=== PATIENT | female | born 1945 | race Caucasian/White ===

== ENCOUNTER 2016-12-19 15:26 | Inpatient (IN) | payer MEDICARE ==
--- NOTE | 2016-12-19 15:43 | Emergency Department Record ---
History of Present Illness - General Chief Complaint: Abdominal Pain Stated Complaint: ABD PAIN Time Seen by Provider: 12/19/16 15:34 Source: Patient Mode of Arrival: Wheelchair Limitations: No limitations - History of Present Illness Initial Comments: The patient is here due to a 2 hour hx of abdominal pain. The pain came on suddenly and started in the upper abdominal area and then moved to the mid- abdomen. The pain is sharp and crampy and is associated with nausea but no vomiting or diarrhea. She has no hx of similar issues and no recent illnesses. The pain was quite severe earlier but now is better. She does have a hx of having a Cholecystectomy in the past and a ANA. Complaint: Abdominal pain Onset/Timin -: Hour(s) Location: Diffuse, Epigastric, Periumbilical Radiation: Back Severity: Severe Quality: Cramping, Other Consistency: Constant Improves With: Nothing Worsens With: Movement Associated Symptoms: Nausea - Related Data Patient : No Home Medications Medication Instructions Recorded Confirmed Last Taken Albuterol Sulfate [Proair Hfa] 8.5 gm INH DAILY 10/03/14 12/19/16 10/03/14 Allopurinol [Allopurinol] 300 mg PO DAILY 10/03/14 12/19/16 10/03/14 Esomeprazole Magnesium [Nexium] 40 mg PO DAILY 10/03/14 12/19/16 10/03/14 Furosemide [Furosemide] 40 tab PO DAILY 10/03/14 12/19/16 10/03/14 Glimepiride [Glimepiride] 2 mg PO DAILY 10/03/14 12/19/16 10/03/14 Levothyroxine Sodium [Synthroid] 50 mcg PO DAILYTHY 10/03/14 12/19/16 10/03/14 Lisinopril [Lisinopril] 10 mg PO DAILY 10/03/14 12/19/16 10/03/14 Metformin HCl [Metformin HCl] 500 mg PO BID 10/03/14 12/19/16 10/03/14 Oxycodone HCl/Acetaminophen 1 tab PO Q6H 10/03/14 12/19/16 10/03/14 [Oxycodone-Acetaminophen 10-325] Previous Rx's Medication Instructions Recorded Indomethacin [Indocin] 25 mg PO TID #20 capsule 10/03/14 Allergies Allergy/AdvReac Type Severity Reaction Status Date / Time azithromycin [From Zithromax] Allergy NAUSEA Verified 10/03/14 09:15 prednisone Allergy SWELLING Verified 10/03/14 09:14 (GENERAL) sulfamethoxazole Allergy NAUSEA Verified 10/03/14 09:15 [From Bactrim] terfenadine [From Seldane] Allergy PT UNSURE Verified 10/03/14 09:15 OF REACTION trimethoprim [From Bactrim] Allergy NAUSEA Verified 10/03/14 09:15 Travel Screening - Travel/Exposure Within Last 30 Days Have you traveled within the last 30 days?: No Review of Systems Constitutional: Denies: Chills, Fever Eyes: Denies: Eye discharge ENT: Denies: Congestion Respiratory: Denies: Cough, Dyspnea Past Medical History - SOCIAL HISTORY Smoking Status: Never smoker Alcohol Use: None Drug Use: None - RESPIRATORY Hx Respiratory Disorders: Yes Hx Asthma: Yes Hx COPD: Yes - CARDIOVASCULAR Hx Cardio Disorders: Yes Hx Hypertension: Yes - NEURO Hx Neuro Disorders: No - GI Hx GI Disorders: Yes Hx Reflux: Yes - Hx Genitourinary Disorders: No - ENDOCRINE Hx Endocrine Disorders: Yes Hx Diabetes: Yes Hx Thyroid Disease: Yes - MUSCULOSKELETAL Hx Musculoskeletal Disorders: Yes Hx Arthritis: Yes Hx Gout: Yes - PSYCH Hx Psych Problems: No - HEMATOLOGY/ONCOLOGY Comment:: Defiency of Ig A, E, and G Family Medical History Any Significant Family History?: Yes Hx Cancer: Father Hx Dementia: Mother Hx Heart Disease: Mother Physical Exam - General General Appearance: Alert, Oriented x3, Cooperative, No acute distress - Head Head exam: Atraumatic, Normocephalic, Normal inspection - Eye Eye exam: Normal appearance, PERRL - ENT Throat exam: Normal inspection. negative: Tonsillar erythema, Tonsillar exudate - Neck Neck exam: Normal inspection, Full ROM. negative: Tenderness - Respiratory Respiratory exam: Normal lung sounds bilaterally. negative: Respiratory distress - Cardiovascular Cardiovascular Exam: Regular rate, Normal rhythm, Normal heart sounds - GI/Abdominal GI/Abdominal exam: Soft, Tenderness (There is diffuse mid abdominal tenderness with no guarding or rebound.). negative: Guarding, Rebound, Rigid - Extremities Extremities exam: Normal inspection, Full ROM, Normal capillary refill. negative: Tenderness Course Vital Signs 12/19/16 15:34 Temperature 97.5 F L Pulse Rate [ 68 Pulse Ox Probe] Respiratory 16 Rate Blood Pressure 193/95 [Right Arm] Pulse Ox 99 - Reevaluation(s) Reevaluation #1: The patient is doing a lot better at this time. She is resting comfortably with much less pain. 12/19/16 16:23 12/19/16 17:56 Reevaluation #2: The patient is doing better but is still having some pain. I did discuss the CT with the patient and do believe the patient's symptoms are due to the incarcerated fat containing hernia. I then did discuss the case with Dr. Timmons and he will take the patient to surgery tomorrow. I then did discuss the case with Dr. Mancuso and she will admit the patient overnight for Dr. Timmons. 12/19/16 17:56 Medical Decision Making - Data Complexity MDM Data: Labs Ordered and/or Reviewed, X-Ray Ordered and/or Reviewed - Lab Data Result diagrams: 12/19/16 16:00 12/19/16 16:00 - Radiology Data Radiology results: Report reviewed (CT: Fat containing periumbilical hernia measuring 7x5x8 cm with mild fat stranding.) Disposition Disposition: Admit Clinical Impression: Umbilical hernia Qualifiers: Obstruction and gangrene presence: without obstruction or gangrene Qualified Code(s): K42.9 - Umbilical hernia without obstruction or gangrene Disposition: Still a Patient at [facility] Decision to Admit: Admit from ER Decision to Admit Date: 12/19/16 Decision to Admit Time: 17:58 Accepting Physician: Jamee Time Discussed w/Accepting Physician: 17:58 Condition: (2) Stable Instructions: Abdominal Pain (ED) Forms: Patient Portal Access Time of Disposition: 17:58
[2016-12-19] MEDS ORDERED: HYDROMORPHONE HCL 1 MG/ML CPJ IVP ONE (15:45)
[2016-12-19] MEDS ORDERED: 0.9 % SODIUM CHLORIDE 1,000 ML BAG IV ONE ×2 (15:45→16:29)
[2016-12-19] MEDS ORDERED: ONDANSETRON HCL IV 4 MG/2 ML VIAL IV ONE (15:45)
[2016-12-19 16:12] LABS: HEMATOCRIT 39.9 % (35.0-47.0); HEMOGLOBIN 13.1 gm/dl (11.6-16.0); MEAN CELL VOLUME 90.1 fl (81-97); MEAN CORPUSCULAR HEMOGLOBIN 29.6 pg (27-33); MEAN CORPUSCULAR HGB CONC 32.8 g/dl (32-36); MEAN PLATELET VOLUME 10.2 fl (7.4-10.4); PLATELET COUNT 213 K/uL (130-400); RED BLOOD COUNT 4.43 M/uL (3.80-5.40); RED CELL DISTRIBUTION WIDTH 14.4 % (11.5-14.5); WHITE BLOOD COUNT W/O DIFF 9.4 K/uL (4.2-12.2)
[2016-12-19 16:24] LABS: ALBUMIN 4.7 gm/dL (3.5-5.0); ANION GAP 14.1 (7-16); BILIRUBIN,TOTAL 0.53 mg/dL (0.2-1.3); CARBON DIOXIDE 26.9 mmol/L (22-30); TOTAL PROTEIN 7.5 gm/dL (6.3-8.2)
[2016-12-19 16:33] LABS: PLATELET ESTIMATE NORMAL (NORMAL)
[2016-12-19 17:32] LABS: URINE APPEARANCE CLEAR; URINE BILIRUBIN NEGATIVE (NEGATIVE); URINE BLOOD NEGATIVE (NEGATIVE); URINE COLOR YELLOW; URINE GLUCOSE (UA) NEGATIVE (NEGATIVE); URINE KETONE NEGATIVE (NEGATIVE); URINE LEUKOCYTE ESTERASE NEGATIVE (NEGATIVE); URINE NITRITE NEGATIVE (NEGATIVE); URINE PROTEIN NEGATIVE (NEGATIVE); URINE UROBILINOGEN 0.2 E.U./dL (0.20 - 1.00)
[2016-12-19] MEDS ORDERED: 0.9 % SODIUM CHLORIDE 1000ML 1,000 ML IV PRN (17:59)
[2016-12-19] MEDS ORDERED: ERTAPENEM SODIUM 1 G in 0.9 % SODIUM CHLORIDE 100ML 100 ML IVPB SCH (18:15)
[2016-12-19] MEDS ORDERED: METFORMIN 500 MG TABLET PO SCH (22:00)
[2016-12-19] MEDS: HYDROMORPHONE HCL 1 MG/ML CPJ IVP PRN (22:54)
[2016-12-20] MEDS: HYDROMORPHONE HCL 1 MG/ML CPJ IVP PRN ×2 (06:17→19:06)
--- NOTE | 2016-12-20 07:52 | CT SCAN REPORT ---
EXAM: CT SCAN OF THE ABDOMEN AND PELVIS WITH CONTRAST HISTORY: SEVERE PERIUMBILICAL ABDOMINAL PAIN SINCE 1:00 P.M. TODAY. TECHNIQUE: Standard CT imaging of the abdomen and pelvis was performed in the axial plane with contrast. 100 ml of Omnipaque 300 were administered. Comparison: None. FINDINGS: The lung bases are clear. Mild coronary artery calcifications are present. There is mild fatty infiltration of the liver. The gallbladder is surgically absent. The biliary tree and pancreas appear normal. The spleen is upper normal in size. There is a 1.2 x 2.2 cm low density nodule within the left adrenal gland likely representing an adenoma. This has decreased in size when compared to a previous chest CT scan from 04/07/12 where it measured 1.6 x 2.7 cm. The right adrenal gland is normal. There are small bilateral renal cysts. The largest on the left measures 2 cm in maximal dimension. The largest on the right measures 1.5 cm in maximal dimension. There is no acute renal pathology. There are moderate atherosclerotic changes within the aorta with aneurysm or dissection. There is no retroperitoneal lymphadenopathy. There is a fat containing umbilical hernia measuring 7.1 x 5 x 8.9 cm. This appears to represent omental fat which extends into the hernia sac. There is minor fat stranding at the opening of the hernia. There is no significant fat stranding within the hernia itself. The remaining portions of the abdominal wall appear intact. There are a few scattered diverticula within the sigmoid colon with no evidence for acute diverticulitis. The remaining bowel and mesentery are normal. The appendix is not well seen, however, there is no evidence for acute appendicitis. The uterus is surgically absent. The urinary bladder appears normal. Degenerative changes are present within the spine. There are no acute osseous abnormalities. IMPRESSION: 1. FAT CONTAINING UMBILICAL HERNIA MEASURING 7.1 X 5 X 8.9 CM. 2. NO ACUTE INTRAABDOMINAL PATHOLOGY. 3. MILD SIGMOID DIVERTICULOSIS WITH NO DIVERTICULITIS. 4. SMALL BILATERAL RENAL CYSTS. 5. LEFT ADRENAL ADENOMA. 6. STATUS POST CHOLECYSTECTOMY AND HYSTERECTOMY. 7. MILD CORONARY ARTERY CALCIFICATIONS. JOB NUMBER: [id number] [facility]
--- NOTE | 2016-12-20 09:27 | History & Physical ---
History of Present Illness - Date of Service Date of Service for History & Physical: 12/20/16 - History of Present Illness Admitting Diagnosis: 1. Incarcerated periumbilical hernia. History of Present Illness: Sb Clinton is a 71 y/o female with history of DM and asthma admitted for fat containing incarcerated umbilical hernia. Reports sudden onset mid abdominal pain around umbilicus with obvious bulging after bringin in groceries. 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 PMX:asthma, COPD, HTN, GERD, DM, thyroid disease, arthritis, gout, deficiency of IgA, IgE, IgG PSH:T&A, D&C, total hysterectomy, cholecystectomy, surgery for abscess in jaw. PCP: Dr. Chapin Travel Screening - Travel/Exposure Within Last 30 Days Have you traveled within the last 30 days?: No - Travel/Exposure Within Last Year Have you traveled outside the [place] in the last year?: No - Additonal Travel Details Have you been exposed to anyone with a communicable illness?: No - Travel Symptoms Symptom Screening: None Review of Systems Constitutional: Denies: Chills, Fever Eyes: Denies: Eye discharge ENT: Denies: Congestion Respiratory: Denies: Cough, Dyspnea Past Medical History - SOCIAL HISTORY Smoking Status: Never smoker Alcohol Use: None - RESPIRATORY Hx Respiratory Disorders: Yes Hx Asthma: Yes Hx COPD: Yes - CARDIOVASCULAR Hx Cardio Disorders: Yes Hx Hypertension: Yes - NEURO Hx Neuro Disorders: No - GI Hx GI Disorders: Yes Hx Reflux: Yes - Hx Genitourinary Disorders: No - ENDOCRINE Hx Endocrine Disorders: Yes Hx Diabetes: Yes Hx Thyroid Disease: Yes - MUSCULOSKELETAL Hx Musculoskeletal Disorders: Yes Hx Arthritis: Yes Hx Gout: Yes - PSYCH Hx Psych Problems: No - HEMATOLOGY/ONCOLOGY Comment:: Defiency of Ig A, E, and G Family Medical History Any Significant Family History?: Yes Hx Cancer: Father Hx Dementia: Mother Hx Heart Disease: Mother H&P Meds/Allergies - Allergies Allergies: Allergies Allergy/AdvReac Type Severity Reaction Status Date / Time azithromycin [From Zithromax] Allergy NAUSEA Verified 10/03/14 09:15 prednisone Allergy SWELLING Verified 10/03/14 09:14 (GENERAL) sulfamethoxazole Allergy NAUSEA Verified 10/03/14 09:15 [From Bactrim] terfenadine [From Seldane] Allergy PT UNSURE Verified 10/03/14 09:15 OF REACTION trimethoprim [From Bactrim] Allergy NAUSEA Verified 10/03/14 09:15 - Home Medications Home Medications Medication Instructions Recorded Confirmed Last Taken Albuterol Sulfate [Proair Hfa] 2 puff INH Q4H PRN 10/03/14 12/20/16 10/03/14 Allopurinol [Allopurinol] 150 mg PO BIDWM 10/03/14 12/20/16 10/03/14 Esomeprazole Magnesium [Nexium] 40 mg PO DAILYAC 10/03/14 12/20/16 10/03/14 Furosemide [Furosemide] 40 mg PO DAILY 10/03/14 12/20/16 10/03/14 Glimepiride [Glimepiride] 2 mg PO 1730 10/03/14 12/20/16 10/03/14 Levothyroxine Sodium [Synthroid] 50 mcg PO DAILYTHY 10/03/14 12/19/16 10/03/14 Lisinopril [Lisinopril] 10 mg PO QHS 10/03/14 12/20/16 10/03/14 Metformin HCl [Metformin HCl] 500 mg PO BIDWM 10/03/14 12/20/16 10/03/14 Oxycodone HCl/Acetaminophen 1 tab PO Q6H 10/03/14 12/19/16 10/03/14 [Oxycodone-Acetaminophen 10-325] Albuterol Sulfate 0.083% [Neb] 3 ml NEB BID 12/20/16 12/20/16 Unknown Meloxicam [Meloxicam] 7.5 mg PO DAILY 12/20/16 12/20/16 Unknown Previous Rx's Medication Instructions Recorded Indomethacin [Indocin] 25 mg PO TID #20 capsule 10/03/14 - Active Medications Active Medications: Current Medications Albuterol Sulfate (Ventolin Hfa) puff INH DAILY TIMMY Furosemide (Lasix) mg PO DAILY TIMMY Glimepiride (Amaryl) 2 mg PO DAILY TIMMY Hydromorphone HCl (Dilaudid) 1 mg IVP Q4H PRN PRN Reason: Abdominal Pain Last Admin: 12/20/16 06:17 Dose: 1 mg Ertapenem 1 g/ Sodium Chloride 100 mls @ 200 mls/hr IVPB DAILY [facility] Last Admin: 12/19/16 19:24 Dose: 200 mls/hr Sodium Chloride () 1,000 mls @ 100 mls/hr IV .Q10H PRN PRN Reason: LARGE VOLUME IV Last Admin: 12/20/16 06:11 Dose: 100 mls/hr Lisinopril (Zestril) 10 mg PO DAILY [facility] Metformin HCl (Glucophage Ir) 500 mg PO BID TIMMY Last Admin: 12/19/16 21:08 Dose: Not Given Non-Formulary Medication (Allopurinol [Allopurinol]) 300 mg PO DAILY [facility] Non-Formulary Medication (Esomeprazole Magnesium [Nexium]) 40 mg PO DAILY [facility] Ondansetron HCl (Zofran) 4 mg IVP Q4H PRN PRN Reason: NAUSEA Physical Exam - Vital Signs Vital Signs: Vital Signs - Last 24 Hrs Temp Pulse Pulse Resp BP BP Pulse Ox 12/20/16 09:20 98.1 F 55 L 16 109/71 95 12/20/16 07:01 98.0 F 57 L 18 144/73 94 L 12/20/16 01:25 98.5 F 56 L 14 131/77 94 L 12/19/16 19:59 98.1 F 72 16 139/86 96 12/19/16 18:44 61 18 141/83 98 - General General Appearance: Alert, Oriented x3, Cooperative, No acute distress Limitations: No limitations - Head Head exam: Atraumatic, Normocephalic, Normal inspection - Eye Eye exam: Normal appearance, PERRL - ENT Throat exam: Normal inspection. negative: Tonsillar erythema, Tonsillar exudate - Neck Neck exam: Normal inspection, Full ROM. negative: Tenderness - Respiratory Respiratory exam: Normal lung sounds bilaterally. negative: Respiratory distress - Cardiovascular Cardiovascular Exam: Regular rate, Normal rhythm, Normal heart sounds - GI/Abdominal GI/Abdominal exam: Soft, Tenderness (There is diffuse mid abdominal tenderness with no guarding or rebound.), Other (periumbilical areas soft, mild protrusion in umbilical opening, no warmth or erythma). negative: Guarding, Rebound, Rigid - Extremities Extremities exam: Normal inspection, Full ROM, Normal capillary refill. negative: Tenderness Results - Labs Result Diagrams: 12/19/16 16:00 12/19/16 16:00 - Imaging and Cardiology CT scan - abdomen Status: Report reviewed (fat containing incarcerated umbilical hernia) VTE H&P Assessment - Risk for VTE Risk for VTE: Yes Risk Level: Moderate Risk Assessment Date: 12/20/16 Risk Assessment Time: 16:25 VTE Orders Placed or Will Be Placed: Yes Plan - Inpatient Certification Inpatient Certification: Admit to inpatient care: Based on my medical assessment, after consideration of patient's risk factors (age, co-morbidities and patient presenting symptoms and acuity), I expect that this patient will remain in the hospital greater than or equal to two midnights and that the services needed warrant inpatient care because: Patient Risk Factors: [advanced age, poor home support] Estimated length of stay: [24-48 hours] The patient may reasonably be expected to be discharged or transferred to a hospital within 96 hours after admission to [facility]. Services needed: [assist with ADL, pain management post op abdominal surgery for incarcerated umbilical hernia] Post hospital care (if known): [] I certify that my determination is in accordance with my understanding of Medicare requirements for reasonable and necessary inpatient services. 12/20/16 11:58 12/20/16 13:55 12/20/16 13:55 - Detailed Diagnosis and Plan (1) Umbilical hernia Current Visit: Yes Status: Acute Qualifiers: Obstruction and gangrene presence: without obstruction or gangrene Qualified Code(s): K42.9 - Umbilical hernia without obstruction or gangrene Base Code: K42.9 - UMBILICAL HERNIA WITHOUT OBSTRUCTION OR GANGRENE Comment: 12/20- CT abdomen/pelvis- incarcerated fat containing umbilical hernia - CBC/CMP unremarkable - U/A negative - afebrile, VS stable - Dr Timmons consult with surgical repair 12/20/16 - plan to keep overnight, she does not have any assist in the home directly after surgery - pain control with Dilaudid 1mg IVP Q 4hr PRN - nausea control with Zofran 4mg IVP Q 4 hr PRN - NPO (2) DM type 2 (diabetes mellitus, type 2) Current Visit: Yes Status: Chronic Qualifiers: Diabetes mellitus complication status: without complication Base Code: E11.9 - TYPE 2 DIABETES MELLITUS WITHOUT COMPLICATIONS Comment: 12/20- chronic well controlled DM-2 - continue Amaryl 2mg QD, Metformin 500mg BID, Lisinopril 10mg QD per home dosing (3) Asthma Current Visit: Yes Status: Chronic Qualifiers: Asthma severity: mild intermittent Base Code: J45.909 - UNSPECIFIED ASTHMA, UNCOMPLICATED Comment: 12/20- chronic asthma, no recent exacerbations or hospitalizations for exacerbations - continue Albuterol neb BID per home regimen (4) DVT prophylaxis Current Visit: Yes Status: Acute Base Code: [id number] - Comment: 12/20- Lovenox 40mg SQ QD during this hospitalization (5) Full code status Current Visit: Yes Status: Acute Base Code: Z78.9 - OTHER SPECIFIED HEALTH STATUS Comment: 12/20- will remain full code status during this hospitalization
[2016-12-20] MEDS ORDERED: ALBUTEROL HFA 8 GM INHALER INH PRN (10:00)
[2016-12-20] MEDS: ALBUTEROL SULFATE (0.083%) 2.5 MG/3 ML NEB INH SCH ×3 (10:09→22:02)
[2016-12-20] MEDS: FUROSEMIDE 40 MG TABLET PO SCH (11:43)
[2016-12-20] MEDS: PANTOPRAZOLE SODIUM 40 MG TABLET PO SCH (11:43)
[2016-12-20] MEDS: ALLOPURINOL 100 MG TAB PO SCH ×2 (11:44→22:33)
[2016-12-20] MEDS: LISINOPRIL 10 MG TABLET PO SCH (11:44)
[2016-12-20] MEDS: ERTAPENEM SODIUM 1 G in 0.9 % SODIUM CHLORIDE 100ML 100 ML IVPB SCH ×2 (12:55→19:51)
[2016-12-20] MEDS ORDERED: ACETAMINOPHEN 100 ML IV ONE (13:30)
[2016-12-20] MEDS: ONDANSETRON HCL IV 4 MG/2 ML VIAL IVP PRN ×2 (16:50→22:32)
[2016-12-20] MEDS ORDERED: GLIMEPIRIDE 2 MG TABLET PO SCH (17:00)
[2016-12-21] MEDS: HYDROMORPHONE HCL 1 MG/ML CPJ IVP PRN (02:38)
[2016-12-21] MEDS: PANTOPRAZOLE SODIUM 40 MG TABLET PO SCH (07:15)
[2016-12-21] MEDS: FUROSEMIDE 40 MG TABLET PO SCH (09:09)
[2016-12-21] MEDS: LISINOPRIL 10 MG TABLET PO SCH (09:10)
[2016-12-21] MEDS: ALLOPURINOL 100 MG TAB PO SCH (09:10)
[2016-12-21] MEDS: ALBUTEROL SULFATE (0.083%) 2.5 MG/3 ML NEB INH SCH (09:56)
[2016-12-21] MEDS ORDERED: ENOXAPARIN 40 MG/0.4 ML SYR SQ SCH (10:00)
[2016-12-21] MEDS: OXYCODONE/APAP 10MG-325MG TABLET PO PRN ×2 (10:07→15:13)
--- NOTE | 2016-12-21 13:06 | Discharge Summary ---
Providers Discharge Summary Date: 12/21/16 Date of admission: 12/20/16 11:20 Expected Date of Discharge: 12/21/16 Attending physician: ISHA PALMA Primary care physician: ESTELLE LANGE D.O. Physical Exam - Vital Signs Vital Signs: Vital Signs - Last 24 Hrs Temp Pulse Pulse Resp BP Pulse Ox 12/21/16 08:59 98.6 F 65 18 144/80 95 12/21/16 06:30 97.9 F 62 18 126/64 94 L 12/20/16 23:00 98.0 F 76 16 159/72 89 L 12/20/16 22:01 67 20 91 L 12/20/16 21:00 16 12/20/16 16:15 61 125/73 94 L 12/20/16 15:45 61 18 136/78 93 L 12/20/16 15:30 97.7 F 62 129/74 92 L - General General Appearance: Alert, Oriented x3, Cooperative, No acute distress Limitations: No limitations - Head Head exam: Atraumatic, Normocephalic, Normal inspection - Eye Eye exam: Normal appearance, PERRL - ENT Throat exam: Normal inspection. negative: Tonsillar erythema, Tonsillar exudate - Neck Neck exam: Normal inspection, Full ROM. negative: Tenderness - Respiratory Respiratory exam: Normal lung sounds bilaterally. negative: Respiratory distress - Cardiovascular Cardiovascular Exam: Regular rate, Normal rhythm, Normal heart sounds - GI/Abdominal GI/Abdominal exam: Soft, Tenderness (There is diffuse mid abdominal tenderness with no guarding or rebound.), Other (periumbilical areas soft, mild protrusion in umbilical opening, no warmth or erythma). negative: Guarding, Rebound, Rigid - Extremities Extremities exam: Normal inspection, Full ROM, Normal capillary refill. negative: Tenderness Hospitalization - Hospitalization Admission Diagnosis: 1. Incarcerated periumbilical hernia. - Problem List/Discharge Diagnosis (1) Umbilical hernia Current Visit: Yes Status: Acute Discharge Diagnosis: Obstruction and gangrene presence: without obstruction or gangrene Qualified Code(s): K42.9 - Umbilical hernia without obstruction or gangrene Base Code: K42.9 - UMBILICAL HERNIA WITHOUT OBSTRUCTION OR GANGRENE Comment: 12/21- surgical repair of incarcerated fat containing umbilical hernia with mesh with Dr. Timmons on 12/20, tolerating pain and diet well - CBC/CMP unremarkable - U/A negative - afebrile, VS stable - Dr Timmons consult with surgical repair 12/20/16 - plan to keep overnight, she does not have any assist in the home directly after surgery - pain control with Dilaudid 1mg IVP Q 4hr PRN - nausea control with Zofran 4mg IVP Q 4 hr PRN - NPO (2) Asthma Current Visit: Yes Status: Chronic Discharge Diagnosis: Asthma severity: mild intermittent Base Code: J45.909 - UNSPECIFIED ASTHMA, UNCOMPLICATED Comment: 12/20- chronic asthma, no recent exacerbations or hospitalizations for exacerbations - continue Albuterol neb BID per home regimen (3) DM type 2 (diabetes mellitus, type 2) Current Visit: Yes Status: Chronic Discharge Diagnosis: Diabetes mellitus complication status: without complication Base Code: E11.9 - TYPE 2 DIABETES MELLITUS WITHOUT COMPLICATIONS Comment: 12/20- chronic well controlled DM-2 - continue Amaryl 2mg QD, Metformin 500mg BID, Lisinopril 10mg QD per home dosing (4) DVT prophylaxis Current Visit: Yes Status: Acute Base Code: [id number] - Comment: 12/20- Lovenox 40mg SQ QD during this hospitalization (5) Full code status Current Visit: Yes Status: Acute Base Code: Z78.9 - OTHER SPECIFIED HEALTH STATUS Comment: 12/20- will remain full code status during this hospitalization - Hospitalization Course Condition at Discharge: (1) Good Discharge Medications - Discharge Medications Home Medications: Ambulatory Orders Albuterol Sulfate [Proair Hfa] 2 puff INH Q4H PRN 10/03/14 [Last Taken 10/03/14] Allopurinol 150 mg PO BIDWM 10/03/14 [Last Taken 10/03/14] Esomeprazole Magnesium [Nexium] 40 mg PO DAILYAC 10/03/14 [Last Taken 10/03/14] Furosemide 40 mg PO DAILY 10/03/14 [Last Taken 10/03/14] Glimepiride 2 mg PO 1730 10/03/14 [Last Taken 10/03/14] Indomethacin [Indocin] 25 mg PO TID #20 capsule 10/03/14 [Last Taken Unknown] Levothyroxine Sodium [Synthroid] 50 mcg PO DAILYTHY 10/03/14 [Last Taken ] Lisinopril 10 mg PO QHS 10/03/14 [Last Taken 10/03/14] Metformin HCl 500 mg PO BIDWM 10/03/14 [Last Taken 10/03/14] Oxycodone HCl/Acetaminophen [Oxycodone/Acetaminophen 10mg/325mg] 1 tab PO Q6H [Last Taken 10/03/14] Albuterol Sulfate 0.083% [Neb] 3 ml NEB BID 12/20/16 [Last Taken Unknown] Meloxicam 7.5 mg PO DAILY 12/20/16 [Last Taken Unknown] Oxycodone HCl/Acetaminophen [Percocet 10mg/325mg] 1 each PO Q6H PRN #0 tablet [Last Taken Unknown] Discharge Plan - Discharge Instructions Activity at Discharge: Increase Activity as Tolerated Diet at Discharge: Advance to Usual Diet Instructions: Abdominal Pain (ED)
[2016-12-21] MEDS ORDERED: ONDANSETRON HCL IV 4 MG/2 ML VIAL IVP ONE (15:29)
[2016-12-21] MEDS ORDERED: PROPOFOL 10 MG/ML VIAL IV ONE (15:29)
[2016-12-21] MEDS ORDERED: BUPIVACAINE 0.25% W/EPI MPF 30ML VIAL IVP ONE (15:29)
[2016-12-21] MEDS ORDERED: HYDROMORPHONE HCL 2 MG/ML VIAL IV ONE (15:29)
[2016-12-21] MEDS ORDERED: KETOROLAC 30 MG/ML VIAL IVP ONE (15:29)
[2016-12-21] MEDS ORDERED: SEVOFLURANE 250 ML INH ONE (15:29)
[2016-12-21] MEDS ORDERED: FENTANYL PF 100MCG/2ML VIAL IV ONE (15:29)
[2016-12-21] MEDS ORDERED: METFORMIN 500 MG TABLET PO SCH (17:30)
--- NOTE | 2016-12-23 10:44 | Medical Records Consult ---
DATE OF CONSULTATION: 12/20/16 REASON FOR CONSULTATION: Incarcerated hernia. The patient is a 71-year-old female who states she was at the grocery store today, she picked up some groceries and felt intense pain in her periumbilical region. She was seen at the [facility] Emergency Room where a full work-up was done. A CT scan did show findings consistent with an incarcerated umbilical hernia containing fat only. There is no bowel in the area. There is no bowel obstruction noted. Since then she states she has felt a little bit better. PAST MEDICAL HISTORY: COPD, chronic pain syndrome, rheumatoid arthritis, hypertension, diabetes, and GERD. PAST SURGICAL HISTORY: Laparoscopic cholecystectomy and open hysterectomy. MEDICATIONS: She currently takes Albuterol, Zyloprim, Lasix, Amaryl, Zestril, Zofran, and Protonix. Her meds also include Percocet 10 mg four times a day. ALLERGIES: AZITHROMYCIN, PREDNISONE, AND BACTRIM. PHYSICAL EXAMINATION: Her vital signs are stable. She is afebrile. Her heart is regular rate and rhythm. Her lungs are clear. Her abdomen is soft, obese. She does have an incarcerated hernia noted. This is tender to her. Extremities do show mild edema. I did review her CT scans and labs. IMPRESSION: INCARCERATED UMBILICAL HERNIA. WE WILL PLAN ON OPEN REPAIR WITH PROBABLE MESH TODAY. RISKS INCLUDE BLEEDING, INFECTION, ACUTE KIND OF PAIN, RECURRENCE AND SHE UNDERSTANDS THIS FULLY. I DID HAVE A DISCUSSION IN DETAIL THAT SINCE WE WILL HAVE SOME PAIN CONTROL ISSUES AFTER SURGERY DUE TO HER HIGH NARCOTIC USAGE. SHE UNDERSTANDS THIS FULLY AND WILL USE HER PERCOCET AT HOME FOR PAIN CONTROL SUPPLEMENTED BY NONSTEROIDAL'S. I WILL SEE HER BACK IN ABOUT TWO WEEKS FOR FOLLOW-UP. Thank you for this referral. Lv Timmons D.O. Date & Time JOB NUMBER: [id number] MTDD
--- NOTE | 2016-12-26 13:05 | Operative Note ---
DATE OF SURGERY: 12/20/2016 REFERRING: Bennie Chapin D.O. PREOPERATIVE DIAGNOSIS: Incarcerated umbilical hernia. POSTOPERATIVE DIAGNOSIS: Incarcerated umbilical hernia. OPERATION: Open umbilical herniorrhaphy with mesh. Surgeon: Lv Timmons D.O. Indications: The patient is a 71-year-old female who was admitted yesterday secondary to periumbilical pain. She had an incarcerated hernia clinically as well as confirmed radiographically. She had really intractable pain part of which was due to her chronic narcotic usage. Nonetheless we did discuss repair. Risks, benefits and alternatives were discussed. Risks included not limited to bleeding, infection, acute chronic pain recurrence. We had a thorough discussion about postoperative pain control, that this might be an issue due to the fact she is taking 40 mg of Percocet a day. Therefore consent was signed, questions answered. PROCEDURE: She was taken to the Operating Room and placed in the supine position. General anesthesia was administered per Department of Anesthesia. The patient's abdomen was prepped and draped in the usual sterile fashion. Adequate timeout was performed. Identify was confirmed. She did receive a preoperative antibiotic. At this time the curvilinear region was anesthetized with 4.5 mL of 0.25% Sensorcaine with epinephrine. Also a localized field block was done. At this time a 5 cm curvilinear incision was made. This was carried down through copious amounts of subcutaneous tissue to the anterior rectus fashion. Incarcerated sac as encountered containing omentum. The umbilical skin was reflected off in a cephalad direction. The neck of the hernia was scored. The sac measured about 7 x 8 cm. The neck was smaller, about 2 cm. This was then amputated and passed off the field. There were a few bleeding points in the omentum which were controlled with 3-0 Vicryl ties. Everything was reduced in the peritoneal cavity. An 8 cm Ventralight mesh was obtained. This was placed in the intraperitoneal position with excellent overlap of hernia. The upper skirt of the mesh was sutured to the anterior rectus fascia with 2-0 Vicryl in 6 spots. The tail overlapped the mesh and was sutured in place as well. At this time the umbilical skin was tacked down to the fascia with 3-0 Vicryl. The wound was closed with 3-0 and 4-0 Vicryl. Steri-Strips were applied. I did pack her navel with sterile cotton balls and an occlusive dressing was applied under vacuum system. She was taken to the Recovery Room in satisfactory condition. FINDINGS AT TIME OF SURGERY: Incarcerated umbilical hernia, repaired as above. Lv Timmons DO CC: Jc Garcia
== END 2016-12-21 15:30 | disposition home or self-care (01) | DRG 355 ==
LOC: ER 15:26 → MEDSURG 18:29 → OBSVTOIN 12-20 11:20
PROVIDERS: ADMIT Family Medicine; ATTEND Family Medicine
PROC: 0WUF0JZ Supplement Abdominal Wall with Synthetic Substitute, Open Approach (ICD-10-PCS; principal; 2016-12-20 14:00)
DX: K42.9 Umbilical hernia without obstruction or gangrene (principal); E11.9 Type 2 diabetes mellitus without complications; Z79.84 Long term (current) use of oral hypoglycemic drugs; J45.909 Unspecified asthma, uncomplicated; Z78.9 Other specified health status
CPT/HCPCS: 99285 ×2; 82150; 83690; 80076; 80048; 81003; 88302; 85027; 74177; 94640; 93005; 93010; G0378 ×6; Q9967; J1335; J2405; J1170 ×2; 99223; 99239; J1650; J1885; J7030; J7613